=== PATIENT | male | born 2000 | race Caucasian/White ===

== ENCOUNTER 2019-06-26 02:21 | Emergency (ER) | payer SELFPAY ==
[~2019-06-26] VITALS: Ht 180.3 cm; Wt 127.3 kg
[~2019-06-26 02:21] MED LIST: AMOX500C2 PO; IBUP-1542 PO
[2019-06-26 02:54] VITALS: BP 161/90; PULSE 100; RESP 20; Ht 180.3 cm; Wt 127.3 kg
== END 2019-06-26 06:28 | disposition home or self-care (01) ==
LOC: FTE 02:21
DX: H92.01 Otalgia, right ear (principal)
CPT/HCPCS: 99283